=== PATIENT | male | born 1960 | race Caucasian/White ===

== ENCOUNTER 2018-08-10 15:44 | Outpatient (CLI) | payer BC ==
[2018-08-10 17:19] LABS: ALT (SGPT) 26 U/L (8-55); AST (SGOT) 26 U/L (5-34); Albumin 4.5 g/dL (3.5-5.0); Alkaline Phosphatase 64 U/L (40-150); Anion Gap 13 mmol/L (10-20); BUN (Urea Nitrogen) 7 mg/dL (8.4-25.7); Bilirubin, Total 0.3 mg/dL (0.2-1.2); Calc. Creatinine Clearance 0 mL/min (70-130); Calcium 9.8 mg/dL (7.8-10.44); Carbon Dioxide 24 mmol/L (22-29); Chloride 102 mmol/L (98-107); Estimated GFR-MDRD 69; Globulin 3.5 g/dL (2.4-3.5); Glucose 97 mg/dL (70-105); Potassium 3.7 mmol/L (3.5-5.1); Sodium 135 mmol/L (136-145)
[2018-08-10 17:24] LABS: #Basophils 0.1 thou/uL (0.0-0.2); #Eosinphils 0.1 thou/uL (0.0-0.7); #Lymphocytes 1.5 thou/uL (1.20-3.40); #Monocytes 0.7 thou/uL (0.11-0.59); #Neutrophils 4.6 thou/uL (1.40-6.50); %Basophils 0.9 % (0.0-1.0); %Eosinophils 1.5 % (0.0-10.0); %Lymphocytes 21.5 % (21.0-51.0); %Monocytes 10.4 % (0.0-10.0); %Neutrophils 65.7 % (42.0-75.0); Anisocytosis MODERATE=16-30 cells (100X) (0-5/hpf); Hemoglobin 13.7 g/dL (14.0-18.0); Hypochromia SLIGHT = 6-15 cells (100X) (0-5/hpf); MDiff Complete? YES; Mean Corpuscular Hemoglobin 25.9 pg (27.0-31.0); Mean Corpuscular Volume 80.9 fL (78.0-98.0); Mean Platelet Volume 10.6 fL (7.4-10.4); PLT Morphology Comment Appears Adequate; Platelet Count 372 thou/uL (130-400); RBC Distribution Width 28.1 % (11.5-14.5); Red Blood Cell (RBC) Count 5.29 mill/uL (4.70-6.10); Target Cells SLIGHT = 2-5 cells (100X) (0-1/hpf)
== END 2018-08-10 15:45 | disposition home or self-care (01) ==
LOC: LABBT 15:44
PROVIDERS: ATTEND Surgery
DX: Z01.818 Encounter for other preprocedural examination (principal); K64.2 Third degree hemorrhoids
CPT/HCPCS: 80053; 85025; 93005; 93010

== ENCOUNTER 2018-08-13 08:03 | Day surgery (SDC) | payer BC ==
[2018-08-10 16:02] VITALS: BMI 30.5
[2018-08-13] MEDS ORDERED: cefOXitin Sodium/Dextrose,Iso 2 GM in Premix Bag 1 BAG IVPB SCH (09:00)
[2018-08-13] MEDS ORDERED: Fentanyl 100 MCG/2 ML VIAL ONE ×3 (10:53→12:26)
[2018-08-13] MEDS ORDERED: Bacitracin Zinc Ointment 30 gm TUBE ONE (10:56)
[2018-08-13] MEDS ORDERED: Bupivacaine/Epinephrine 0.25% 30 ML VIAL ONE (10:56)
--- NOTE | 2018-08-13 12:28 | OP ---
DATE OF PROCEDURE: 08/13/2018 PREOPERATIVE DIAGNOSIS: Bleeding hemorrhoids. PROCEDURE PERFORMED: PPH stapled hemorrhoidectomy. INDICATIONS: A 58-year-old male, who has had multiple episodes of rectal bleeding. Colonoscopy did show hemorrhoids. He has had to have a blood transfusion. FINDINGS: Grade 3 internal hemorrhoids. DESCRIPTION OF PROCEDURE: After informed consent was obtained, the patient was taken to the operating room and given general endotracheal anesthesia. He was placed in the prone jann-knife position. Perianal region was prepped and draped in usual fashion. Local anesthesia was infiltrated subcutaneously and deep with 0.5% Marcaine as a four-quadrant anal block. Then, the anal retractor was inserted maximally and sutured in place with 0 silk suture circumferentially. Then, the pursestring guide was inserted and a pursestring of 2-0 Prolene placed circumferentially in the rectal mucosa. The stapler was then inserted. The anvil beyond the pursestring and the sutures were brought through the channels on the scope with a iban hook. This was tied as a knot and the pursestring held closed as the stapler closed. It was then fired and held for 30 seconds, released for 30 seconds, and removed. The specimen was inspected. There was no muscle fiber, sent to pathology for further analysis. Hemostasis was assured. There were two areas of bleeding that was controlled with interrupted [id number] of 3-0 chromic. Hemostasis was assured. Gelfoam impregnated with bacitracin was inserted within the anal canal. Sterile bandage applied. The patient tolerated the procedure well, transferred to recovery in good condition. Sponge and needle count verified correct x2. Job ID: [id number]
== END 2018-08-13 14:30 | disposition home or self-care (01) ==
LOC: SDC 08:03
PROVIDERS: ATTEND Surgery
PROC: 06LY0ZC Occlusion of Hemorrhoidal Plexus, Open Approach (ICD-10-PCS; principal; 2018-08-13)
DX: K64.2 Third degree hemorrhoids (principal); I10 Essential (primary) hypertension; E78.5 Hyperlipidemia, unspecified; G47.33 Obstructive sleep apnea (adult) (pediatric); Z90.49 Acquired absence of other specified parts of digestive tract; Z79.899 Other long term (current) drug therapy; Z98.890 Other specified postprocedural states
CPT/HCPCS: 88304; 96374; J3010

== ENCOUNTER 2020-09-12 18:24 | Inpatient (IN) | payer BC ==
[~2020-09-12 18:24] MED LIST: Iopamidol-370 76% 500 ML 1 ML ONE
[2020-09-12] MEDS ORDERED: cefTRIAXone\\ROCEPHIN 1 GM VIAL ONE (19:03)
[2020-09-12 19:16] LABS: #Eosinphils 0.1 thou/uL (0.0-0.7); #Lymphocytes 0.6 thou/uL (1.20-3.40); #Monocytes 0.9 thou/uL (0.11-0.59); #Neutrophils 5.9 thou/uL (1.40-6.50); %Basophils 0.4 % (0.0-1.0); %Eosinophils 0.8 % (0.0-10.0); %Lymphocytes 7.6 % (21.0-51.0); %Monocytes 11.6 % (0.0-10.0); %Neutrophils 79.5 % (42.0-75.0); Mean Corpuscular HGB CONC 34.5 g/dL (32.0-36.0); Mean Corpuscular Hemoglobin 32.6 pg (27.0-31.0); Mean Corpuscular Volume 94.4 fL (78.0-98.0); Platelet Count 401 thou/uL (130-400); RBC Distribution Width 11.6 % (11.5-14.5); Red Blood Cell (RBC) Count 5.23 mill/uL (4.70-6.10); White Blood Cell (WBC) Count 7.4 thou/uL (4.8-10.8)
--- NOTE | 2020-09-12 19:19 | RAD ---
PORTABLE CHEST ONE VIEW: 09/12/20 at 6:57 p.m. HISTORY: Cough. COMPARISON: 12/28/16 FINDINGS: The heart size is normal. The lungs are expanded with patchy opacities in the right mid lung. No pneu mothoraces or pleural effusions are seen. There are postop changes and metallic hardware in the lower cervical spine. IMPRESSION: Findings suspicious for right sided pneumonia. POS: OFF
[2020-09-12 19:25] LABS: PTT 30.6 sec (22.9-36.1); Prothrombin Time 13.3 sec (12.0-14.7)
[2020-09-12 19:27] LABS: D-Dimer Test 1.19 *mcg/mL (0.27-0.43)
[2020-09-12 19:38] LABS: ALT (SGPT) 12 U/L (8-55); AST (SGOT) 28 U/L (5-34); Acetaminophen Less than 6.0 mcg/mL (10.0-30.0); Albumin 3.7 g/dL (3.4-4.8); Alcohol Less than 10 mg/dL (Less than 10); Alkaline Phosphatase 78 U/L (40-110); Anion Gap 19 mmol/L (10-20); BUN (Urea Nitrogen) 6 mg/dL (8.4-25.7); Bilirubin, Total 0.4 mg/dL (0.2-1.2); Calc. Creatinine Clearance 0 mL/min (70-130); Calcium 9.1 mg/dL (7.8-10.44); Carbon Dioxide 25 mmol/L (23-31); Chloride 93 mmol/L (98-107); Glucose 105 mg/dL (80-115); Potassium 3.5 mmol/L (3.5-5.1); Protein, Total 7.7 g/dL (5.8-8.1); Salicylate Less than 8.0 mg/dL (15.0-30.0); Sodium 133 mmol/L (136-145)
[2020-09-12] MEDS ORDERED: Azithromycin 500 MG VIAL ONE (20:20)
[2020-09-12] MEDS ORDERED: Dexamethasone 10 MG/ML VIAL ONE (20:20)
--- NOTE | 2020-09-12 20:22 | CT ---
CT PULMONARY ANGIOGRAM WITH IV CONTRAST AND 3D POSTPROCESSIN09/12/20 HISTORY: Tachycardia, dyspnea, cough, fever, shortness of breath. FINDINGS: The peripheral ranches of the pulmonary arteries are not satisfactorily evaluated due to inadequate o pacification. No filling defects are seen in the main and right and left pulmonary arteries. The main pulmonary arterial trunk measures 3.5 cm. Possibility of pulmonary arterial hypertension should be c onsidered. The thoracic aorta is well opacified without aneurysmal dissection. No pleural or pericardial effusio ns are seen. No pneumothoraces identified. There are multifocal patchy areas of ground glass opacitie s in the lung mcdermott bilaterally. There are degenerative changes in the spine. Upper abdominal tomogr ams are unremarkable. IMPRESSION: No evidence of central pulmonary embolism. The findings are suspicious for viral pneumonia suggesting COVID-19 in the appropriate clinical setting. POS: OFF
[2020-09-12] MEDS ORDERED: Ketorolac Tromethamine 30 MG/ML VIAL ONE (21:28)
--- NOTE | 2020-09-12 22:07 | PDOC.HHP ---
Hospitalist HPI - History of Present Illness Shortness of breath History of Present Illness: This is a 60-year-old male patient with a history of hypertension, hyperlipidemia who presents with an 8-day history of worsening shortness of breath, cough fever and general malaise. He tested positive for Covid 3 to 4 days ago. He was in his usual state of health however notes that his tested positive for Covid but she has been asymptomatic. He subsequently started feeling generally unwell and had a test done at [facility] which was positive. Symptoms have become progressively worseleading him to come to the ED for further evaluation. He admits to fever with productive cough with generalized body pains. He denies any specific chest pain. On presentation he was noted to be wheezing with oxygen saturation at 88%. Blood pressure 166/105, pulse 118, temperature 100.2 respiratory rate is 29. Oxygen saturation improved to 94 on 2 L oxygen. CBC was generally unremarkable, BMP showed mild hyponatremia of 133, D-dimer was 1.19 however a follow-up CT scan revealed no pulmonary embolism. He however had findings suspicious of pneumonia. He was started on dexamethasone, azithromycin, ceftriaxone and 1 L normal saline. Hospitalist team consulted for admission Hospitalist ROS - Review of Systems Constitutional: reports: fever, chills, malaise. denies: sweats, weakness Respiratory: reports: cough, shortness of breath, SOB with excertion Cardiovascular: denies: chest pain, palpitations, orthopnea, paroxysmal noc. dyspnea Gastrointestinal: reports: diarrhea. denies: nausea, vomiting, abdominal pain Genitourinary: denies: dysuria, frequency Neurological: denies: weakness, numbness, incoordination, change in speech All other systems reviewed; all pertinent +/- noted in HPI/Subj - Medication Medications: Medications: Currently refer to ambulatory list. Allergies: No known drug allergies Hospitalist History - Past Medical History Cardiac: reports: HTN, Hyperlipidemia - Past Surgical History Past Surgical History: reports: Appendectomy, Hernia Repair - Family History Family History: reports: no pertinent history - Social History Smoking Status: Current every day smoker Alcohol: reports: Occassional Living Situation: With Family - Exam General Appearance: awake alert General - other findings: In mild respiratory distress Eye: PERRL, anicteric sclera Heart: RRR, no murmur, no gallops, no rubs Respiratory: no rales, no ronchi, wheezes Respiratory - other findings: Decreased air movement bilaterally. Gastrointestinal: soft, non-tender, non-distended, normal bowel sounds Extremities: no cyanosis, no clubbing, no edema Neurological: cranial nerve grossly intact, no weakness, no focal deficits Psychiatric: normal affect, normal behavior, A&O x 3 Hospitalist Results - Labs Result Diagrams: 09/12/20 18:58 09/12/20 18:58 Lab results: WBC 7.4 thou/uL (4.8-10.8) 09/12/20 18:58 Hgb 17.0 g/dL (14.0-18.0) 09/12/20 18:58 Hct 49.4 % (42.0-52.0) 09/12/20 18:58 MCV 94.4 fL (78.0-98.0) 09/12/20 18:58 Plt Count 401 thou/uL (130-400) H 09/12/20 18:58 Neutrophils % 79.5 % (42.0-75.0) H 09/12/20 18:58 Sodium 133 mmol/L (136-145) L 09/12/20 18:58 Potassium 3.5 mmol/L (3.5-5.1) 09/12/20 18:58 Chloride 93 mmol/L (98-107) L 09/12/20 18:58 Carbon Dioxide 25 mmol/L (23-31) 09/12/20 18:58 BUN 6 mg/dL (8.4-25.7) L 09/12/20 18:58 Creatinine 0.75 mg/dL (0.7-1.3) 09/12/20 18:58 Glucose 105 mg/dL (80-115) 09/12/20 18:58 Lactic Acid 1.6 mmol/L (0.5-2.2) 09/12/20 18:58 Calcium 9.1 mg/dL (7.8-10.44) 09/12/20 18:58 Total Bilirubin 0.4 mg/dL (0.2-1.2) 09/12/20 18:58 AST 28 U/L (5-34) 09/12/20 18:58 ALT 12 U/L (8-55) 01/16/21 18:58 Alkaline Phosphatase 78 U/L (40-110) 09/12/20 18:58 Troponin I Less than 0.010 ng/mL (< 0.028) 09/12/20 18:58 B-Natriuretic Peptide 61.4 pg/mL (0-100) 09/12/20 18:58 Serum Total Protein 7.7 g/dL (5.8-8.1) 09/12/20 18:58 Albumin 3.7 g/dL (3.4-4.8) 09/12/20 18:58 Hospitalist H&P A/P - Plan Plan: This is a 60-year-old male patient with a history of hypertension and hyperlipidemia who presents with 8 days of worsening fever cough and shortness of breath tested positive for Covid 3 to 4 days ago. Acute hypoxic respiratory failure Hypoxia with sats up to 88%. Likely secondary to Covid pneumonia Oxygen therapy as needed Pulmonology consult if necessary. Pneumonia due to Covid Positive test about 3 to 4 days ago. Steroids startedwe will continue Continue vitamins Consider remdesivirpharmacy to dose CRP and ferritin Hyponatremia Mild Monitor BMP Hypertension Resume home blood pressure medications next VT prophylaxisLovenox CODE STATUSfull code
[2020-09-13 00:22] VITALS: BMI 27.2
[2020-09-13 06:16] LABS: SARS-CoV-2 PCR by NAA DETECTED (NotDetected)
[2020-09-13] MEDS ORDERED: Calcium Carbonate 500 MG ChewTAB PO PRN (08:17)
[2020-09-13] MEDS ORDERED: Ondansetron PF 4 MG/2 ML Vial IVP PRN (08:17)
[2020-09-13] MEDS ORDERED: Senokot S 8.6-50 MG TAB PO PRN (08:17)
[2020-09-13] MEDS ORDERED: Ondansetron ODT 4 MG TAB PO PRN (08:17)
[2020-09-13] MEDS ORDERED: hydrALAZINE 20 MG/ML VIAL SLOW IVP PRN (08:24)
[2020-09-13] MEDS ORDERED: Potassium Chloride 20 MEQ TAB PO SCH (08:30)
[2020-09-13] MEDS ORDERED: Electrolyte Replacement Protocol 1 EACH FS SCH (08:30)
[2020-09-13] MEDS ORDERED: Albuterol 200 PUFF (6.7GM INHALER) INH PRN (08:58)
[2020-09-13] MEDS ORDERED: Dexamethasone 4 mg/ml Vial SLOW IVP SCH (09:00)
[2020-09-13] MEDS: Amlodipine 10 MG TAB PO SCH (09:03)
[2020-09-13] MEDS: Allopurinol 300 MG TAB PO SCH (09:03)
[2020-09-13] MEDS: Cholecalciferol (Vitamin D3) 400 UNITS TAB PO SCH (09:04)
[2020-09-13] MEDS: Ascorbic Acid 500 mg Chewable Tablet PO SCH (09:04)
[2020-09-13] MEDS: Zinc Sulfate 220 MG CAP PO SCH (09:06)
[2020-09-13] MEDS: Enoxaparin Sodium 40 MG/0.4 ML SYRINGE SC SCH ×2 (09:06→20:43)
[2020-09-13] MEDS: Primidone 50 MG TAB PO SCH (09:06)
[2020-09-13] MEDS: Doxycycline 100 MG CAP PO SCH ×2 (09:06→20:43)
[2020-09-13] MEDS: Albuterol 200 PUFF (6.7GM INHALER) INH SCH ×4 (10:39→22:57)
--- NOTE | 2020-09-13 18:58 | PDOC.HOSPP ---
- Subjective Encounter Date: 09/13/20 Encounter Time: 16:00 Subjective: Patient seen and examined for respiratory failure. Shortness of breath on [id number] exertion. Denies any chest pain or palpitations. No fever or chills reported. - Objective Vital Signs & Weight: Vital Signs (12 hours) Temp Pulse Resp BP BP Pulse Ox 09/13/20 16:01 97.8 F 90 16 144/91 H 95 09/13/20 10:40 97.9 F 70 26 H 155/84 H 97 09/13/20 09:03 78 09/13/20 08:17 98.4 F 71 26 H 151/83 H 97 Weight Weight 200 lb 14.4 oz I&O: 09/12/20 09/13/20 09/14/20 06:59 06:59 06:59 Intake Total 450 250 Output Total 800 500 Balance -350 -250 Result Diagrams: 09/12/20 18:58 09/12/20 18:58 Additional Labs: Abnormal Lab Results - Last 48 hrs 09/12/20 18:58: Sodium 133 L, Chloride 93 L, BUN 6 L, Globulin 4.0 H, Albumin/Globulin Ratio 0.9 L 09/12/20 18:58: MCH 32.6 H, Plt Count 401 H, MPV 6.0 L, Neutrophils % 79.5 H, Lymphocytes % 7.6 L, Monocytes % 11.6 H, Lymphocytes # 0.6 L, Monocytes # 0.9 H 09/12/20 18:58: D-Dimer 1.19 H 09/12/20 18:58: Salicylates Less than 8.0 L, Acetaminophen Less than 6.0 L 09/12/20 19:03: Ferritin 461.66 H 09/13/20 02:00: SARS-CoV-2 RNA (MAGDA) DETECTED A* 09/13/20 04:57: C-Reactive Protein 18.18 H Microbiology - Entire Visit 09/12/20 18:49 Venous blood - Right Arm Blood Culture - Preliminary Specimen has been received and culture in progress. No Growth to date. 09/12/20 18:58 Venous blood - Left Arm Blood Culture - Preliminary Specimen has been received and culture in progress. No Growth to date. Radiology Reviewed by me: Yes (CTA chestpneumonia, no PE) EKG Reviewed by me: Yes (Sinus rhythm on telemetry) Hospitalist ROS - Review of Systems Constitutional: reports: weakness, malaise Cardiovascular: denies: chest pain, palpitations, orthopnea, paroxysmal noc. dys pnea, edema, light headedness, other Gastrointestinal: denies: nausea, vomiting, abdominal pain, diarrhea, constipation, melena, hematochezia, other - Medication Medications: Active Medications Generic Name Dose Route Start Last Admin Trade Name Freq PRN Reason Stop Dose Admin Albuterol Sulfate 0 puff 09/13/20 10:30 09/13/20 15:00 Albuterol 200 Puff (6.7gm Inhaler) INH 2 inh [id number] ANNELISE Administration Allopurinol 300 mg 09/13/20 09:00 09/13/20 09:03 Allopurinol 300 Mg Tab PO 300 mg QAM ANNELISE Administration Amlodipine Besylate 10 mg 09/13/20 09:00 09/13/20 09:03 Amlodipine 10 Mg Tab PO 10 mg QAM ANNELISE Administration Ascorbic Acid 1,000 mg 09/13/20 09:00 09/13/20 09:04 Ascorbic Acid 500 Mg Chewable Tablet PO 1,000 mg DAILY ANNELISE Administration Cholecalciferol 400 units 09/13/20 09:00 09/13/20 09:04 Cholecalciferol (Vitamin D3) 400 Units Tab PO 400 units DAILY ANNELISE Administration Dexamethasone 8 mg 09/13/20 09:00 09/13/20 09:04 Dexamethasone 4 Mg/Ml Vial SLOW IVP 8 mg DAILY ANNELISE Administration Doxycycline Hyclate 100 mg 09/13/20 09:00 09/13/20 09:06 Doxycycline 100 Mg Cap PO 100 mg BID ANNELISE Administration Enoxaparin Sodium 40 mg 09/13/20 09:00 09/13/20 09:06 Enoxaparin Sodium 40 Mg/0.4 Ml Syringe SC 40 mg 0900,2100 ANNELISE Administration Metoprolol Succinate 50 mg 09/13/20 09:00 09/13/20 09:06 Metoprolol Succinate Xl 50 Mg Tab PO 50 mg DAILY ANNELISE Administration Pantoprazole Sodium 40 mg 09/13/20 09:00 09/13/20 09:07 Pantoprazole 40 Mg Tab PO 40 mg DAILY ANNELISE Administration Primidone 100 mg 09/13/20 09:00 09/13/20 09:06 Primidone 50 Mg Tab PO 100 mg DAILY ANNELISE Administration Zinc Sulfate 220 mg 09/13/20 09:00 09/13/20 09:06 Zinc Sulfate 220 Mg Cap PO 220 mg DAILY ANNELISE Administration - Exam General Appearance: ill appearing ENT: normocephalic atraumatic, no oropharyngeal lesions Neck: supple, symmetric, no JVD Heart: RRR, no gallops, no rubs, normal peripheral pulses Respiratory: no wheezes, rales, rhonchi, tachypneic Gastrointestinal: soft, non-distended, normal bowel sounds, no guarding, no rigidity Extremities: no cyanosis, no clubbing, no edema Extremities - other findings: No calf tenderness Neurological: no new deficit Musculoskeletal: generalized weakness Psychiatric: normal affect, A&O x 3 Hosp A/P - Plan DVT proph w/SCDs Severe sepsis/acute hypoxic respiratory failure due to COVID-19 pneumoniaPOA Hyponatremia Elevated inflammatory markers Hypertension Hyperlipidemia Reactive thrombocytosis Gout Plan: Reduce Decadron to 6 mg daily. Patient requiring 2 L O2 nasal cannula. Monitor inflammatory markers. Remdesivir if patient qualifies. Resume selected home medications including amlodipine. Start low-dose Toprol-XL. Hold olmesartan for now. Add bronchodilators. Add doxycycline. Check inflammatory markers in a.m. Continue other medications as above. Continue COVID-19 isolation.
[2020-09-13] MEDS: Acetaminophen 325 MG TAB PO PRN (20:43)
[2020-09-13] MEDS: Mometasone 200 MCG/Formoterol 5 MCG 120 PUFF INHALER INH SCH (20:44)
[2020-09-14] MEDS: Albuterol 200 PUFF (6.7GM INHALER) INH SCH ×6 (02:33→23:26)
[2020-09-14 05:48] LABS: #Lymphocytes 0.6 thou/uL (1.20-3.40); #Monocytes 0.9 thou/uL (0.11-0.59); #Neutrophils 8.1 thou/uL (1.40-6.50); %Eosinophils 0.1 % (0.0-10.0); %Monocytes 9.7 % (0.0-10.0); %Neutrophils 84.3 % (42.0-75.0); Hemoglobin 15.4 g/dL (14.0-18.0); Mean Corpuscular HGB CONC 32.1 g/dL (32.0-36.0); Mean Corpuscular Hemoglobin 30.2 pg (27.0-31.0); Mean Platelet Volume 6.1 fL (7.4-10.4); Platelet Count 509 thou/uL (130-400); RBC Distribution Width 11.7 % (11.5-14.5); Red Blood Cell (RBC) Count 5.09 mill/uL (4.70-6.10); White Blood Cell (WBC) Count 9.6 thou/uL (4.8-10.8)
[2020-09-14] MEDS: Mometasone 200 MCG/Formoterol 5 MCG 120 PUFF INHALER INH SCH ×2 (05:57→18:55)
[2020-09-14 06:07] LABS: Phosphorus 3.4 mg/dL (2.3-4.7)
[2020-09-14 06:09] LABS: ALT (SGPT) 13 U/L (8-55); AST (SGOT) 16 U/L (5-34); Albumin 3.3 g/dL (3.4-4.8); Alkaline Phosphatase 61 U/L (40-110); Anion Gap 12 mmol/L (10-20); BUN (Urea Nitrogen) 9 mg/dL (8.4-25.7); Bilirubin, Total 0.2 mg/dL (0.2-1.2); CRP (Inflammatory) 8.24 mg/dL (= or < 0.5); Calc. Creatinine Clearance 154 mL/min (70-130); Calcium 8.9 mg/dL (7.8-10.44); Carbon Dioxide 30 mmol/L (23-31); Chloride 100 mmol/L (98-107); Globulin 3.6 g/dL (2.4-3.5); Glucose 132 mg/dL (80-115); Magnesium 2.1 mg/dL (1.6-2.6); Potassium 3.4 mmol/L (3.5-5.1); Protein, Total 6.9 g/dL (5.8-8.1); Sodium 139 mmol/L (136-145)
[2020-09-14] MEDS ORDERED: Potassium Chloride 20 MEQ TAB PO SCH (07:30)
[2020-09-14] MEDS: Ascorbic Acid 500 mg Chewable Tablet PO SCH (08:19)
[2020-09-14] MEDS: Amlodipine 10 MG TAB PO SCH (08:20)
[2020-09-14] MEDS: Cholecalciferol (Vitamin D3) 400 UNITS TAB PO SCH (08:21)
[2020-09-14] MEDS: Allopurinol 300 MG TAB PO SCH (08:21)
[2020-09-14] MEDS: Doxycycline 100 MG CAP PO SCH ×2 (08:21→19:51)
[2020-09-14] MEDS ORDERED: Dexamethasone 4 mg/ml Vial ONE (08:25)
[2020-09-14] MEDS: Dexamethasone 4 mg/ml Vial SLOW IVP SCH (08:26)
[2020-09-14] MEDS: Enoxaparin Sodium 40 MG/0.4 ML SYRINGE SC SCH ×2 (08:29→19:51)
[2020-09-14] MEDS: Acetaminophen 325 MG TAB PO PRN (11:01)
[2020-09-14] MEDS: Primidone 50 MG TAB PO SCH (11:02)
[2020-09-14] MEDS: Zinc Sulfate 220 MG CAP PO SCH (11:03)
[2020-09-14] MEDS: Lorazepam 1 MG TAB PO PRN ×2 (14:01→19:51)
[2020-09-14] MEDS ORDERED: REMDESIVIR IV SCH (15:00)
[2020-09-14] MEDS ORDERED: SODIUM CHLORIDE 0.9% IV SCH (15:00)
--- NOTE | 2020-09-14 22:01 | PDOC.HOSPP ---
- Subjective Encounter Date: 09/14/20 Encounter Time: 16:00 Subjective: Patient seen and examined for COVID 19 pneumonia. Denies any new complaints. Symptomatically feeling better. No fever or chills - Objective Vital Signs & Weight: Vital Signs (12 hours) Temp Pulse Resp BP BP Pulse Ox 09/14/20 20:49 157/98 H 09/14/20 20:00 97.7 F 93 20 146/88 H 92 L 09/14/20 18:53 97.9 F 92 20 157/98 H 92 L 09/14/20 18:45 97.9 F 92 20 157/98 H 92 L 09/14/20 17:55 157/98 H 09/14/20 15:00 97.8 F 87 21 H 152/88 H 94 L 09/14/20 13:55 153/89 H 09/14/20 13:52 153/89 H 09/14/20 11:00 97.9 F 95 16 153/89 H 94 L Weight Weight 200 lb 14.4 oz I&O: 09/13/20 09/14/20 09/15/20 06:59 06:59 06:59 Intake Total 450 250 600 Output Total 800 500 Balance -350 -250 600 Result Diagrams: 09/14/20 05:25 09/14/20 05:25 Additional Labs: Abnormal Lab Results - Last 48 hrs 09/12/20 19:03: Ferritin 461.66 H 09/13/20 02:00: SARS-CoV-2 RNA (MAGDA) DETECTED A* 09/13/20 04:57: C-Reactive Protein 18.18 H 09/14/20 05:25: Potassium 3.4 L, Creatinine 0.65 L, C-Reactive Protein 8.24 H, Albumin 3.3 L, Globulin 3.6 H, Albumin/Globulin Ratio 0.9 L 09/14/20 05:25: Ferritin 526.22 H 09/14/20 05:25: Plt Count 509 H, MPV 6.1 L, Neutrophils % 84.3 H, Lymphocytes % 6.0 L, Neutrophils # 8.1 H, Lymphocytes # 0.6 L, Monocytes # 0.9 H 09/14/20 05:25: D-Dimer 0.87 H Microbiology - Entire Visit 09/12/20 18:49 Venous blood - Right Arm Blood Culture - Preliminary NO GROWTH AT 48 HOURS 09/12/20 18:58 Venous blood - Left Arm Blood Culture - Preliminary NO GROWTH AT 48 HOURS Radiology Reviewed by me: Yes (CTACOVID pneumonia) Hospitalist ROS - Review of Systems Constitutional: reports: weakness Cardiovascular: denies: chest pain, palpitations, orthopnea, paroxysmal noc. dyspnea, edema, light headedness, other Gastrointestinal: denies: nausea, vomiting, abdominal pain, diarrhea, constipation, melena, hematochezia, other - Medication Medications: Active Medications Generic Name Dose Route Start Last Admin Trade Name Freq PRN Reason Stop Dose Admin Acetaminophen 650 mg 09/13/20 08:17 09/14/20 11:01 Acetaminophen 325 Mg Tab PO 650 mg Q4H PRN Administration Headache/Fever/Mild Pain (1-3) Albuterol Sulfate 0 puff 09/13/20 10:30 09/14/20 18:55 Albuterol 200 Puff (6.7gm Inhaler) INH 2 inh [id number] ANNELISE Administration Allopurinol 300 mg 09/13/20 09:00 09/14/20 08:21 Allopurinol 300 Mg Tab PO 300 mg QAM ANNELISE Administration Amlodipine Besylate 10 mg 09/13/20 09:00 09/14/20 08:20 Amlodipine 10 Mg Tab PO 10 mg QAM ANNELISE Administration Ascorbic Acid 1,000 mg 09/13/20 09:00 09/14/20 08:19 Ascorbic Acid 500 Mg Chewable Tablet PO 1,000 mg DAILY ANNELISE Administration Cholecalciferol 400 units 09/13/20 09:00 09/14/20 08:21 Cholecalciferol (Vitamin D3) 400 Units Tab PO 400 units DAILY ANNELISE Administration Dexamethasone 6 mg 09/14/20 09:00 09/14/20 08:26 Dexamethasone 4 Mg/Ml Vial SLOW IVP 6 mg DAILY ANNELISE Administration Doxycycline Hyclate 100 mg 09/13/20 09:00 09/14/20 19:51 Doxycycline 100 Mg Cap PO 100 mg BID ANNELISE Administration Enoxaparin Sodium 40 mg 09/13/20 09:00 09/14/20 19:51 Enoxaparin Sodium 40 Mg/0.4 Ml Syringe SC 40 mg 0900,2100 ANNELISE Administration Hydralazine HCl 10 mg 09/13/20 08:24 09/14/20 00:45 Hydralazine 20 Mg/Ml Vial SLOW IVP 10 mg Q4H PRN Administration SBP GREATER THAN 160 Lorazepam 1 mg 09/14/20 11:28 09/14/20 19:51 Lorazepam 1 Mg Tab PO 1 mg Q4H PRN Administration ASE >=9 Metoprolol Succinate 50 mg 09/13/20 09:00 09/14/20 08:20 Metoprolol Succinate Xl 50 Mg Tab PO 50 mg DAILY ANNELISE Administration Mometasone Furoate/Formoterol Fumar 2 puff 09/13/20 18:30 09/14/20 18:55 Mometasone 200 Mcg/Formoterol 5 Mcg 120 Puff Inhaler INH 2 puff BID-RT ANNELISE Administration Pantoprazole Sodium 40 mg 09/13/20 09:00 09/13/20 09:07 Pantoprazole 40 Mg Tab PO 40 mg DAILY ANNELISE Administration Primidone 100 mg 09/13/20 09:00 09/14/20 11:02 Primidone 50 Mg Tab PO 100 mg DAILY ANNELISE Administration Zinc Sulfate 220 mg 09/13/20 09:00 09/14/20 11:03 Zinc Sulfate 220 Mg Cap PO Not Given DAILY ANNELISE - Exam General Appearance: awake alert Neck: supple, no JVD Heart: RRR, no gallops Respiratory: no wheezes, rales, rhonchi Gastrointestinal: soft, non-tender, no rigidity Extremities: no cyanosis Musculoskeletal: generalized weakness Psychiatric: normal affect, A&O x 3 Hosp A/P - Plan DVT proph w/SCDs Severe sepsis/acute hypoxic respiratory failure due to COVID-19 pneumonia Hyponatremia/Hypokalemia Elevated inflammatory markers Hypertension Hyperlipidemia Reactive thrombocytosis Gout Chronic alcohol use Plan: Patient currently on 4 L oxygen nasal cannula. Inflammatory markers improving. Will replace potassium. Blood cultures negative. At alcohol withdrawal protocol. Remdesivir started. Continue bronchodilators. Continue current dose of amlodipine, doxycycline, Decadron along with Toprol-XL. Monitor LFTs on daily basis. Continue other medications as above 09/13 Reduce Decadron to 6 mg daily. Patient requiring 2 L O2 nasal cannula. Monitor inflammatory markers. Remdesivir if patient qualifies. Resume selected home medications including amlodipine. Start low-dose Toprol-XL. Hold olmesartan for now. Add bronchodilators. Add doxycycline. Check inflammatory markers in a.m. Continue other medications as above. Continue COVID-19 isolation.
[2020-09-14] MEDS: ALPRAZolam 0.25 MG TAB PO PRN (23:53)
[2020-09-15] MEDS: Albuterol 200 PUFF (6.7GM INHALER) INH SCH ×6 (03:38→23:05)
[2020-09-15 06:10] LABS: #Lymphocytes 0.7 thou/uL (1.20-3.40); #Monocytes 1.2 thou/uL (0.11-0.59); #Neutrophils 7.3 thou/uL (1.40-6.50); %Basophils 0.1 % (0.0-1.0); %Eosinophils 0.2 % (0.0-10.0); %Lymphocytes 7.9 % (21.0-51.0); %Monocytes 12.7 % (0.0-10.0); %Neutrophils 79.1 % (42.0-75.0); Hemoglobin 14.8 g/dL (14.0-18.0); Mean Corpuscular HGB CONC 33.3 g/dL (32.0-36.0); Mean Corpuscular Hemoglobin 31.8 pg (27.0-31.0); Mean Corpuscular Volume 95.5 fL (78.0-98.0); Mean Platelet Volume 5.8 fL (7.4-10.4); Platelet Count 511 thou/uL (130-400); RBC Distribution Width 11.7 % (11.5-14.5); Red Blood Cell (RBC) Count 4.64 mill/uL (4.70-6.10); White Blood Cell (WBC) Count 9.2 thou/uL (4.8-10.8)
[2020-09-15] MEDS: Mometasone 200 MCG/Formoterol 5 MCG 120 PUFF INHALER INH SCH ×2 (06:10→17:33)
[2020-09-15 06:31] LABS: ALT (SGPT) 14 U/L (8-55); AST (SGOT) 14 U/L (5-34); Alkaline Phosphatase 56 U/L (40-110); Anion Gap 16 mmol/L (10-20); BUN (Urea Nitrogen) 10 mg/dL (8.4-25.7); Bilirubin, Total 0.2 mg/dL (0.2-1.2); Calc. Creatinine Clearance 151 mL/min (70-130); Calcium 8.6 mg/dL (7.8-10.44); Carbon Dioxide 28 mmol/L (23-31); Chloride 100 mmol/L (98-107); Globulin 3.2 g/dL (2.4-3.5); Glucose 101 mg/dL (80-115); Potassium 3.5 mmol/L (3.5-5.1); Protein, Total 6.2 g/dL (5.8-8.1); Sodium 140 mmol/L (136-145)
[2020-09-15] MEDS ORDERED: Potassium Chloride 20 MEQ TAB PO SCH (07:45)
[2020-09-15] MEDS: Cholecalciferol (Vitamin D3) 400 UNITS TAB PO SCH (08:36)
[2020-09-15] MEDS: Amlodipine 10 MG TAB PO SCH (08:36)
[2020-09-15] MEDS: Doxycycline 100 MG CAP PO SCH ×2 (08:36→20:39)
[2020-09-15] MEDS: Zinc Sulfate 220 MG CAP PO SCH (08:36)
[2020-09-15] MEDS: Ascorbic Acid 500 mg Chewable Tablet PO SCH (08:37)
[2020-09-15] MEDS: Dexamethasone 4 mg/ml Vial SLOW IVP SCH (08:37)
[2020-09-15] MEDS: Primidone 50 MG TAB PO SCH (08:37)
[2020-09-15] MEDS: Allopurinol 300 MG TAB PO SCH (08:37)
[2020-09-15] MEDS: Enoxaparin Sodium 40 MG/0.4 ML SYRINGE SC SCH ×2 (08:37→20:39)
[2020-09-15] MEDS: ALPRAZolam 0.25 MG TAB PO PRN (11:38)
[2020-09-15] MEDS: SODIUM CHLORIDE 0.9% IV SCH (15:48)
[2020-09-15] MEDS: REMDESIVIR IV SCH (15:48)
--- NOTE | 2020-09-15 19:41 | PDOC.HOSPP ---
- Subjective Encounter Date: 09/15/20 Encounter Time: 14:00 Subjective: Patient seen and examined for respiratory failure. Shortness of breath improving. Denies any other complaints. Withdrawal symptoms controlled with ASE protocol. - Objective Vital Signs & Weight: Vital Signs (12 hours) Temp Pulse Resp BP BP Pulse Ox 09/15/20 19:28 98.8 F 88 20 147/87 H 93 L 09/15/20 16:55 98.6 F 93 18 143/85 H 95 09/15/20 12:45 98.6 F 90 20 133/81 100 09/15/20 08:40 97 09/15/20 08:35 98 20 97 09/15/20 08:17 98.8 F 90 24 H 145/83 H 96 Weight Weight 200 lb 14.4 oz I&O: 09/14/20 09/15/20 09/16/20 06:59 06:59 06:59 Intake Total 824 370 4366 Output Total 500 Balance -528 218 0051 Result Diagrams: 09/15/20 05:58 09/15/20 05:58 Additional Labs: Abnormal Lab Results - Last 48 hrs 09/14/20 05:25: Potassium 3.4 L, Creatinine 0.65 L, C-Reactive Protein 8.24 H, Albumin 3.3 L, Globulin 3.6 H, Albumin/Globulin Ratio 0.9 L 09/14/20 05:25: Ferritin 526.22 H 09/14/20 05:25: Plt Count 509 H, MPV 6.1 L, Neutrophils % 84.3 H, Lymphocytes % 6.0 L, Neutrophils # 8.1 H, Lymphocytes # 0.6 L, Monocytes # 0.9 H 09/14/20 05:25: D-Dimer 0.87 H 09/15/20 05:58: Creatinine 0.66 L, Albumin 3.0 L, Albumin/Globulin Ratio 0.9 L 09/15/20 05:58: RBC 4.64 L, MCH 31.8 H, Plt Count 511 H, MPV 5.8 L, Neutrophils % 79.1 H, Lymphocytes % 7.9 L, Monocytes % 12.7 H, Neutrophils # 7.3 H, Lymphocytes # 0.7 L, Monocytes # 1.2 H Microbiology - Entire Visit 09/12/20 18:49 Venous blood - Right Arm Blood Culture - Preliminary NO GROWTH AT 48 HOURS 09/12/20 18:58 Venous blood - Left Arm Blood Culture - Preliminary NO GROWTH AT 48 HOURS Hospitalist ROS - Review of Systems Cardiovascular: denies: chest pain, palpitations, orthopnea, paroxysmal noc. dyspnea, edema, light headedness, other Gastrointestinal: denies: nausea, vomiting, abdominal pain, diarrhea, constipation, melena, hematochezia, other - Medication Medications: Active Medications Generic Name Dose Route Start Last Admin Trade Name Freq PRN Reason Stop Dose Admin Acetaminophen 650 mg 09/13/20 08:17 09/14/20 11:01 Acetaminophen 325 Mg Tab PO 650 mg Q4H PRN Administration Headache/Fever/Mild Pain (1-3) Albuterol Sulfate 0 puff 09/13/20 10:30 09/15/20 17:34 Albuterol 200 Puff (6.7gm Inhaler) INH 2 inh [id number] ANNELISE Administration Allopurinol 300 mg 09/13/20 09:00 09/15/20 08:37 Allopurinol 300 Mg Tab PO 300 mg QAM ANNELISE Administration Alprazolam 0.25 mg 09/14/20 22:03 09/15/20 11:38 Alprazolam 0.25 Mg Tab PO 0.25 mg BIDPRN PRN Administration Anxiety Amlodipine Besylate 10 mg 09/13/20 09:00 09/15/20 08:36 Amlodipine 10 Mg Tab PO 10 mg QAM ANNELISE Administration Ascorbic Acid 1,000 mg 09/13/20 09:00 09/15/20 08:37 Ascorbic Acid 500 Mg Chewable Tablet PO 1,000 mg DAILY ANNELISE Administration Cholecalciferol 400 units 09/13/20 09:00 09/15/20 08:36 Cholecalciferol (Vitamin D3) 400 Units Tab PO 400 units DAILY ANNELISE Administration Dexamethasone 6 mg 09/14/20 09:00 09/15/20 08:37 Dexamethasone 4 Mg/Ml Vial SLOW IVP 6 mg DAILY ANNELISE Administration Doxycycline Hyclate 100 mg 09/13/20 09:00 09/15/20 08:36 Doxycycline 100 Mg Cap PO 100 mg BID ANNELISE Administration Enoxaparin Sodium 40 mg 09/13/20 09:00 09/15/20 08:37 Enoxaparin Sodium 40 Mg/0.4 Ml Syringe SC 40 mg 0900,2099 ANNELISE Administration Hydralazine HCl 10 mg 09/13/20 08:24 09/14/20 00:45 Hydralazine 20 Mg/Ml Vial SLOW IVP 10 mg Q4H PRN Administration SBP GREATER THAN 160 Remdesivir 100 mg/ Sodium 80 mls @ 80 mls/hr 09/15/20 15:00 09/15/20 15:48 Chloride IV 09/18/20 15:59 80 mls 1500 ANNELISE Administration Lorazepam 1 mg 09/14/20 11:28 09/14/20 19:51 Lorazepam 1 Mg Tab PO 1 mg Q4H PRN Administration ASE >=9 Metoprolol Succinate 50 mg 09/13/20 09:00 09/15/20 08:37 Metoprolol Succinate Xl 50 Mg Tab PO 50 mg DAILY ANNELISE Administration Mometasone Furoate/Formoterol Fumar 2 puff 09/13/20 18:30 09/15/20 17:33 Mometasone 200 Mcg/Formoterol 5 Mcg 120 Puff Inhaler INH 2 puff BID-RT ANNELISE Administration Pantoprazole Sodium 40 mg 09/13/20 09:00 09/15/20 08:37 Pantoprazole 40 Mg Tab PO 40 mg DAILY ANNELISE Administration Primidone 100 mg 09/13/20 09:00 09/15/20 08:37 Primidone 50 Mg Tab PO 100 mg DAILY ANNELISE Administration Sodium Chloride 10 ml 09/13/20 08:17 09/15/20 08:37 Flush - Normal Saline 10 Ml Syringe IVF 10 ml PRN PRN Administration Saline Flush Zinc Sulfate 220 mg 09/13/20 09:00 09/15/20 08:36 Zinc Sulfate 220 Mg Cap PO 220 mg DAILY ANNELISE Administration - Exam General Appearance: awake alert Neck: supple, no JVD Heart: RRR, no gallops, no rubs Respiratory: no wheezes, rales, rhonchi Gastrointestinal: soft, normal bowel sounds, no guarding, no rigidity Extremities: no cyanosis Neurological: no new deficit Musculoskeletal: generalized weakness Psychiatric: normal affect, A&O x 3 Hosp A/P - Plan DVT proph w/SCDs Severe sepsis/acute hypoxic respiratory failure due to COVID-19 pneumonia Hyponatremia/Hypokalemia Elevated inflammatory markers Hypertension Hyperlipidemia Reactive thrombocytosis Gout Chronic alcohol abuse with alcohol withdrawalpatient drinks 12 to 16 pack beer on the daily basis Plan: Wean O2 as tolerated. Patient down to 3 L O2 nasal cannula. Symptomatically feeling better.. Continue remdesivir with dexamethasone and doxycycline. Continue bronchodilators. Continue PPIs. Replace potassium. Continue alcohol withdrawal protocol. Continue other medications as above. Close monitoring for alcohol withdrawal. 09/14 Patient currently on 4 L oxygen nasal cannula. Inflammatory markers improving. Will replace potassium. Blood cultures negative. At alcohol withdrawal protocol. Remdesivir started. Continue bronchodilators. Continue current dose of amlodipine, doxycycline, Decadron along with Toprol-XL. Monitor LFTs on daily basis. Continue other medications as above 09/13 Reduce Decadron to 6 mg daily. Patient requiring 2 L O2 nasal cannula. Monitor inflammatory markers. Remdesivir if patient qualifies. Resume selected home medications including amlodipine. Start low-dose Toprol-XL. Hold olmesartan for now. Add bronchodilators. Add doxycycline. Check inflammatory markers in a.m. Continue other medications as above. Continue COVID-19 isolation.
[2020-09-15] MEDS: BEER 1 CAN PO SCH (20:40)
[2020-09-16] MEDS: Albuterol 200 PUFF (6.7GM INHALER) INH SCH ×6 (03:06→22:50)
[2020-09-16 06:18] LABS: #Eosinphils 0.1 thou/uL (0.0-0.7); #Monocytes 1.4 thou/uL (0.11-0.59); #Neutrophils 8.1 thou/uL (1.40-6.50); %Basophils 0.1 % (0.0-1.0); %Eosinophils 0.5 % (0.0-10.0); %Lymphocytes 9.3 % (21.0-51.0); %Monocytes 13.1 % (0.0-10.0); Hemoglobin 14.4 g/dL (14.0-18.0); Mean Corpuscular HGB CONC 32.2 g/dL (32.0-36.0); Mean Corpuscular Hemoglobin 30.6 pg (27.0-31.0); Platelet Count 559 thou/uL (130-400); RBC Distribution Width 11.7 % (11.5-14.5); Red Blood Cell (RBC) Count 4.69 mill/uL (4.70-6.10); White Blood Cell (WBC) Count 10.6 thou/uL (4.8-10.8)
[2020-09-16 06:45] LABS: ALT (SGPT) 23 U/L (8-55); AST (SGOT) 20 U/L (5-34); Albumin 3.1 g/dL (3.4-4.8); Alkaline Phosphatase 64 U/L (40-110); Anion Gap 12 mmol/L (10-20); BUN (Urea Nitrogen) 9 mg/dL (8.4-25.7); Bilirubin, Total 0.2 mg/dL (0.2-1.2); Calc. Creatinine Clearance 137 mL/min (70-130); Calcium 8.7 mg/dL (7.8-10.44); Carbon Dioxide 34 mmol/L (23-31); Chloride 98 mmol/L (98-107); Globulin 3.3 g/dL (2.4-3.5); Glucose 98 mg/dL (80-115); Potassium 3.9 mmol/L (3.5-5.1); Protein, Total 6.4 g/dL (5.8-8.1); Sodium 140 mmol/L (136-145)
[2020-09-16] MEDS: Mometasone 200 MCG/Formoterol 5 MCG 120 PUFF INHALER INH SCH ×2 (07:28→17:18)
[2020-09-16] MEDS: Ascorbic Acid 500 mg Chewable Tablet PO SCH (08:06)
[2020-09-16] MEDS: Enoxaparin Sodium 40 MG/0.4 ML SYRINGE SC SCH (08:06)
[2020-09-16] MEDS: Allopurinol 300 MG TAB PO SCH (08:07)
[2020-09-16] MEDS: Doxycycline 100 MG CAP PO SCH ×2 (08:07→20:59)
[2020-09-16] MEDS: Dexamethasone 4 mg/ml Vial SLOW IVP SCH (08:07)
[2020-09-16] MEDS: Amlodipine 10 MG TAB PO SCH (08:07)
[2020-09-16] MEDS: Zinc Sulfate 220 MG CAP PO SCH (08:07)
[2020-09-16] MEDS: Cholecalciferol (Vitamin D3) 400 UNITS TAB PO SCH (08:07)
[2020-09-16] MEDS: Primidone 50 MG TAB PO SCH (09:30)
[2020-09-16] MEDS: ALPRAZolam 0.25 MG TAB PO PRN (12:14)
[2020-09-16] MEDS: REMDESIVIR IV SCH (16:20)
[2020-09-16] MEDS: SODIUM CHLORIDE 0.9% IV SCH (16:20)
--- NOTE | 2020-09-16 18:31 | PDOC.HOSPP ---
- Subjective Encounter Date: 09/16/20 Encounter Time: 11:00 Subjective: Patient seen and examined for respiratory failure. Shortness of breath improving. Denies any new complaints. - Objective Vital Signs & Weight: Vital Signs (12 hours) Temp Pulse Resp BP BP Pulse Ox 09/16/20 16:58 99.0 F 83 20 130/83 97 09/16/20 13:00 145/88 H 09/16/20 12:02 98.5 F 105 H 20 145/88 H 95 09/16/20 09:00 159/73 H 09/16/20 08:30 98.9 F 86 20 159/93 H 93 L 09/16/20 08:07 132/85 09/16/20 08:00 93 L Weight Weight 200 lb 14.4 oz I&O: 09/15/20 09/16/20 09/17/20 06:59 06:59 06:59 Intake Total 600 1800 Balance 600 1800 Result Diagrams: 09/16/20 05:52 09/16/20 05:52 Additional Labs: Abnormal Lab Results - Last 48 hrs 09/15/20 05:58: Creatinine 0.66 L, Albumin 3.0 L, Albumin/Globulin Ratio 0.9 L 09/15/20 05:58: RBC 4.64 L, MCH 31.8 H, Plt Count 511 H, MPV 5.8 L, Neutrophils % 79.1 H, Lymphocytes % 7.9 L, Monocytes % 12.7 H, Neutrophils # 7.3 H, Lymphocytes # 0.7 L, Monocytes # 1.2 H 09/16/20 05:52: Carbon Dioxide 34 H, Albumin 3.1 L, Albumin/Globulin Ratio 0.9 L 09/16/20 05:52: RBC 4.69 L, Plt Count 559 H, MPV 6.0 L, Neutrophils % 77.0 H, Lymphocytes % 9.3 L, Monocytes % 13.1 H, Neutrophils # 8.1 H, Lymphocytes # 1.0 L, Monocytes # 1.4 H Microbiology - Entire Visit 09/12/20 18:49 Venous blood - Right Arm Blood Culture - Preliminary NO GROWTH AT 48 HOURS 09/12/20 18:58 Venous blood - Left Arm Blood Culture - Preliminary NO GROWTH AT 48 HOURS Hospitalist ROS - Review of Systems Cardiovascular: denies: chest pain, palpitations, orthopnea, paroxysmal noc. dyspnea, edema, light headedness, other Gastrointestinal: denies: nausea, vomiting, abdominal pain, diarrhea, constipation, melena, hematochezia, other - Medication Medications: Active Medications Generic Name Dose Route Start Last Admin Trade Name Freq PRN Reason Stop Dose Admin Acetaminophen 650 mg 09/13/20 08:17 09/14/20 11:01 Acetaminophen 325 Mg Tab PO 650 mg Q4H PRN Administration Headache/Fever/Mild Pain (1-3) Albuterol Sulfate 0 puff 09/13/20 10:30 09/16/20 17:18 Albuterol 200 Puff (6.7gm Inhaler) INH 2 inh [id number] ANNELISE Administration Allopurinol 300 mg 09/13/20 09:00 09/16/20 08:07 Allopurinol 300 Mg Tab PO 300 mg QAM ANNELISE Administration Alprazolam 0.25 mg 09/14/20 22:03 09/16/20 12:14 Alprazolam 0.25 Mg Tab PO 0.25 mg BIDPRN PRN Administration Anxiety Amlodipine Besylate 10 mg 09/13/20 09:00 09/16/20 08:07 Amlodipine 10 Mg Tab PO 10 mg QAM ANNELISE Administration Ascorbic Acid 1,000 mg 09/13/20 09:00 09/16/20 08:06 Ascorbic Acid 500 Mg Chewable Tablet PO 1,000 mg DAILY ANNELISE Administration Beer 1 each 09/15/20 21:00 09/15/20 20:40 Beer 1 Can PO 1 each HS ANNELISE Administration Cholecalciferol 400 units 09/13/20 09:00 09/16/20 08:07 Cholecalciferol (Vitamin D3) 400 Units Tab PO 400 units DAILY ANNELISE Administration Dexamethasone 6 mg 09/14/20 09:00 09/16/20 08:07 Dexamethasone 4 Mg/Ml Vial SLOW IVP 6 mg DAILY ANNELISE Administration Doxycycline Hyclate 100 mg 09/13/20 09:00 09/16/20 08:07 Doxycycline 100 Mg Cap PO 100 mg BID ANNELISE Administration Enoxaparin Sodium 40 mg 09/13/20 09:00 09/16/20 08:06 Enoxaparin Sodium 40 Mg/0.4 Ml Syringe SC 40 mg 0900,2100 ANNELISE Administration Hydralazine HCl 10 mg 09/13/20 08:24 09/14/20 00:45 Hydralazine 20 Mg/Ml Vial SLOW IVP 10 mg Q4H PRN Administration SBP GREATER THAN 160 Remdesivir 100 mg/ Sodium 80 mls @ 80 mls/hr 09/15/20 15:00 09/16/20 16:20 Chloride IV 09/18/20 15:59 80 mls 1500 ANNELISE Administration Lorazepam 1 mg 09/14/20 11:28 09/14/20 19:51 Lorazepam 1 Mg Tab PO 1 mg Q4H PRN Administration ASE >=9 Metoprolol Succinate 50 mg 09/13/20 09:00 09/16/20 08:07 Metoprolol Succinate Xl 50 Mg Tab PO 50 mg DAILY ANNELISE Administration Mometasone Furoate/Formoterol Fumar 2 puff 09/13/20 18:30 09/16/20 17:18 Mometasone 200 Mcg/Formoterol 5 Mcg 120 Puff Inhaler INH 2 puff BID-RT ANNELISE Administration Pantoprazole Sodium 40 mg 09/13/20 09:00 09/16/20 08:06 Pantoprazole 40 Mg Tab PO 40 mg DAILY ANNELISE Administration Primidone 100 mg 09/13/20 09:00 09/16/20 09:30 Primidone 50 Mg Tab PO 100 mg DAILY ANNELISE Administration Sodium Chloride 10 ml 09/13/20 08:17 09/15/20 08:37 Flush - Normal Saline 10 Ml Syringe IVF 10 ml PRN PRN Administration Saline Flush Zinc Sulfate 220 mg 09/13/20 09:00 09/16/20 08:07 Zinc Sulfate 220 Mg Cap PO 220 mg DAILY ANNELISE Administration - Exam General Appearance: awake alert Neck: supple, no JVD Heart: RRR, no gallops Respiratory: no wheezes, no ronchi Gastrointestinal: soft, non-tender, no guarding, no rigidity Extremities: no cyanosis Hosp A/P - Plan DVT proph w/SCDs Severe sepsis/acute hypoxic respiratory failure due to COVID-19 pneumonia Hyponatremia/Hypokalemia Elevated inflammatory markers Hypertension Hyperlipidemia Reactive thrombocytosis Gout Chronic alcohol abuse with alcohol withdrawalpatient drinks 12 to 16 pack beer on the daily basis Plan: Wean O2 as tolerated. Check inflammatory markers in a.m.. Continue remdesivir with Decadron. Continue Lovenox for DVT prophylaxis. Continue other medications as above. Continue alcohol withdrawal protocol. Continue other medications as above 09/15 Wean O2 as tolerated. Patient down to 3 L O2 nasal cannula. Symptomatically feeling better.. Continue remdesivir with dexamethasone and doxycycline. Continue bronchodilators. Continue PPIs. Replace potassium. Continue alcohol withdrawal protocol. Continue other medications as above. Close monitoring for alcohol withdrawal. 09/14 Patient currently on 4 L oxygen nasal cannula. Inflammatory markers improving. Will replace potassium. Blood cultures negative. At alcohol withdrawal protocol. Remdesivir started. Continue bronchodilators. Continue current dose of amlodipine, doxycycline, Decadron along with Toprol-XL. Monitor LFTs on daily basis. Continue other medications as above 09/13 Reduce Decadron to 6 mg daily. Patient requiring 2 L O2 nasal cannula. Monitor inflammatory markers. Remdesivir if patient qualifies. Resume selected home medications including amlodipine. Start low-dose Toprol-XL. Hold olmesartan for now. Add bronchodilators. Add doxycycline. Check inflammatory markers in a.m. Continue other medications as above. Continue COVID-19 isolation.
[2020-09-16] MEDS: BEER 1 CAN PO SCH ×2 (20:59→21:06)
[2020-09-17] MEDS: Albuterol 200 PUFF (6.7GM INHALER) INH SCH ×6 (02:46→22:55)
[2020-09-17] MEDS: Mometasone 200 MCG/Formoterol 5 MCG 120 PUFF INHALER INH SCH ×2 (06:00→21:06)
[2020-09-17 06:29] LABS: #Eosinphils 0.1 thou/uL (0.0-0.7); #Monocytes 1.3 thou/uL (0.11-0.59); #Neutrophils 7.6 thou/uL (1.40-6.50); %Basophils 0.3 % (0.0-1.0); %Eosinophils 1.2 % (0.0-10.0); %Lymphocytes 10.3 % (21.0-51.0); %Neutrophils 75.2 % (42.0-75.0); Hemoglobin 14.6 g/dL (14.0-18.0); Mean Corpuscular HGB CONC 32.7 g/dL (32.0-36.0); Mean Corpuscular Hemoglobin 31.3 pg (27.0-31.0); Mean Corpuscular Volume 95.7 fL (78.0-98.0); Mean Platelet Volume 6.1 fL (7.4-10.4); Platelet Count 639 thou/uL (130-400); RBC Distribution Width 11.7 % (11.5-14.5); Red Blood Cell (RBC) Count 4.66 mill/uL (4.70-6.10); White Blood Cell (WBC) Count 10.1 thou/uL (4.8-10.8)
[2020-09-17 06:47] LABS: ALT (SGPT) 28 U/L (8-55); AST (SGOT) 18 U/L (5-34); Albumin 3.1 g/dL (3.4-4.8); Alkaline Phosphatase 65 U/L (40-110); Anion Gap 10 mmol/L (10-20); BUN (Urea Nitrogen) 10 mg/dL (8.4-25.7); Bilirubin, Total 0.3 mg/dL (0.2-1.2); Calc. Creatinine Clearance 141 mL/min (70-130); Calcium 8.9 mg/dL (7.8-10.44); Carbon Dioxide 35 mmol/L (23-31); Chloride 98 mmol/L (98-107); Globulin 3.4 g/dL (2.4-3.5); Glucose 93 mg/dL (80-115); Protein, Total 6.5 g/dL (5.8-8.1); Sodium 139 mmol/L (136-145)
[2020-09-17] MEDS: Zinc Sulfate 220 MG CAP PO SCH (09:31)
[2020-09-17] MEDS: Doxycycline 100 MG CAP PO SCH ×2 (09:31→21:07)
[2020-09-17] MEDS: Ascorbic Acid 500 mg Chewable Tablet PO SCH (09:31)
[2020-09-17] MEDS: Cholecalciferol (Vitamin D3) 400 UNITS TAB PO SCH (09:32)
[2020-09-17] MEDS: Primidone 50 MG TAB PO SCH (09:32)
[2020-09-17] MEDS: Allopurinol 300 MG TAB PO SCH (09:32)
[2020-09-17] MEDS: Amlodipine 10 MG TAB PO SCH (09:32)
[2020-09-17] MEDS: Dexamethasone 4 mg/ml Vial SLOW IVP SCH (09:33)
[2020-09-17] MEDS: Enoxaparin Sodium 40 MG/0.4 ML SYRINGE SC SCH ×2 (09:33→21:07)
[2020-09-17] MEDS: REMDESIVIR IV SCH (14:48)
[2020-09-17] MEDS: SODIUM CHLORIDE 0.9% IV SCH (14:48)
[2020-09-17] MEDS: ALPRAZolam 0.25 MG TAB PO PRN ×2 (16:32→21:07)
[2020-09-17] MEDS: BEER 1 CAN PO SCH (21:07)
--- NOTE | 2020-09-17 22:09 | PDOC.HOSPP ---
- Subjective Encounter Date: 09/17/20 Encounter Time: 11:00 Subjective: Patient evaluated for respiratory failure. Shortness of breath improving. Mild dry cough. Denies any nausea, vomiting or fever - Objective Vital Signs & Weight: Vital Signs (12 hours) Temp Pulse Resp BP Pulse Ox 09/17/20 20:00 98.6 F 89 20 122/75 94 L Weight Weight 200 lb 14.4 oz I&O: 09/16/20 09/17/20 09/18/20 06:59 06:59 06:59 Intake Total 1800 2480 Balance 1800 2480 Result Diagrams: 09/17/20 05:54 09/17/20 05:54 Additional Labs: Abnormal Lab Results - Last 48 hrs 09/16/20 05:52: Carbon Dioxide 34 H, Albumin 3.1 L, Albumin/Globulin Ratio 0.9 L 09/16/20 05:52: RBC 4.69 L, Plt Count 559 H, MPV 6.0 L, Neutrophils % 77.0 H, Lymphocytes % 9.3 L, Monocytes % 13.1 H, Neutrophils # 8.1 H, Lymphocytes # 1.0 L, Monocytes # 1.4 H 09/17/20 05:54: Carbon Dioxide 35 H, Albumin 3.1 L, Albumin/Globulin Ratio 0.9 L 09/17/20 05:54: RBC 4.66 L, MCH 31.3 H, Plt Count 639 H, MPV 6.1 L, Neutrophils % 75.2 H, Lymphocytes % 10.3 L, Monocytes % 13.0 H, Neutrophils # 7.6 H, Lymphocytes # 1.0 L, Monocytes # 1.3 H 09/17/20 05:54: C-Reactive Protein 4.48 H 09/17/20 05:54: D-Dimer 2.23 H Microbiology - Entire Visit 09/12/20 18:49 Venous blood - Right Arm Blood Culture - Preliminary NO GROWTH AT 48 HOURS 09/12/20 18:58 Venous blood - Left Arm Blood Culture - Preliminary NO GROWTH AT 48 HOURS Hospitalist ROS - Review of Systems Cardiovascular: denies: chest pain, palpitations, orthopnea, paroxysmal noc. dyspnea, edema, light headedness, other Gastrointestinal: denies: nausea, vomiting, abdominal pain, diarrhea, constipation, melena, hematochezia, other - Medication Medications: Active Medications Generic Name Dose Route Start Last Admin Trade Name Freq PRN Reason Stop Dose Admin Acetaminophen 650 mg 09/13/20 08:17 09/14/20 11:01 Acetaminophen 325 Mg Tab PO 650 mg Q4H PRN Administration Headache/Fever/Mild Pain (1-3) Albuterol Sulfate 0 puff 09/13/20 10:30 09/17/20 21:06 Albuterol 200 Puff (6.7gm Inhaler) INH 2 inh [id number] ANNELISE Administration Allopurinol 300 mg 09/13/20 09:00 09/17/20 09:32 Allopurinol 300 Mg Tab PO 300 mg QAM ANNELISE Administration Alprazolam 0.25 mg 09/14/20 22:03 09/17/20 21:07 Alprazolam 0.25 Mg Tab PO 0.25 mg BIDPRN PRN Administration Anxiety Amlodipine Besylate 10 mg 09/13/20 09:00 09/17/20 09:32 Amlodipine 10 Mg Tab PO 10 mg QAM ANNELISE Administration Ascorbic Acid 1,000 mg 09/13/20 09:00 09/17/20 09:31 Ascorbic Acid 500 Mg Chewable Tablet PO 1,000 mg DAILY ANNELISE Administration Beer 1 each 09/15/20 21:00 09/17/20 21:07 Beer 1 Can PO Not Given HS [facility] Cholecalciferol 400 units 09/13/20 09:00 09/17/20 09:32 Cholecalciferol (Vitamin D3) 400 Units Tab PO 400 units DAILY ANNELISE Administration Dexamethasone 6 mg 09/14/20 09:00 09/17/20 09:33 Dexamethasone 4 Mg/Ml Vial SLOW IVP 6 mg DAILY ANNELISE Administration Doxycycline Hyclate 100 mg 09/13/20 09:00 09/17/20 21:07 Doxycycline 100 Mg Cap PO 100 mg BID ANNELISE Administration Enoxaparin Sodium 40 mg 09/17/20 09:00 09/17/20 09:33 Enoxaparin Sodium 40 Mg/0.4 Ml Syringe SC 40 mg 0900 ANNELISE Administration Enoxaparin Sodium 40 mg 09/17/20 21:00 09/17/20 21:07 Enoxaparin Sodium 40 Mg/0.4 Ml Syringe SC 40 mg 2100 ANNELISE Administration Hydralazine HCl 10 mg 09/13/20 08:24 09/14/20 00:45 Hydralazine 20 Mg/Ml Vial SLOW IVP 10 mg Q4H PRN Administration SBP GREATER THAN 160 Remdesivir 100 mg/ Sodium 80 mls @ 80 mls/hr 09/15/20 15:00 09/17/20 14:48 Chloride IV 09/18/20 15:59 80 mls 1500 ANNELISE Administration Lorazepam 1 mg 09/14/20 11:28 09/14/20 19:51 Lorazepam 1 Mg Tab PO 1 mg Q4H PRN Administration ASE >=9 Metoprolol Succinate 50 mg 09/13/20 09:00 09/17/20 09:33 Metoprolol Succinate Xl 50 Mg Tab PO 50 mg DAILY ANNELISE Administration Mometasone Furoate/Formoterol Fumar 2 puff 09/13/20 18:30 09/17/20 21:06 Mometasone 200 Mcg/Formoterol 5 Mcg 120 Puff Inhaler INH 2 puff BID-RT ANNELISE Administration Pantoprazole Sodium 40 mg 09/13/20 09:00 09/17/20 09:31 Pantoprazole 40 Mg Tab PO 40 mg DAILY ANNELISE Administration Primidone 100 mg 09/13/20 09:00 09/17/20 09:32 Primidone 50 Mg Tab PO 100 mg DAILY ANNELISE Administration Sodium Chloride 10 ml 09/13/20 08:17 09/17/20 09:33 Flush - Normal Saline 10 Ml Syringe IVF 10 ml PRN PRN Administration Saline Flush Zinc Sulfate 220 mg 09/13/20 09:00 09/17/20 09:31 Zinc Sulfate 220 Mg Cap PO 220 mg DAILY ANNELISE Administration - Exam General Appearance: awake alert Neck: supple Heart: RRR, no gallops Respiratory: rales, rhonchi Gastrointestinal: soft, no guarding, no rigidity Extremities: no cyanosis Musculoskeletal: generalized weakness Psychiatric: A&O x 3 Hosp A/P - Plan DVT proph w/lovenox, DVT proph w/SCDs Severe sepsis/acute hypoxic respiratory failure due to COVID-19 pneumonia Hyponatremia/Hypokalemia Elevated inflammatory markers Hypertension Hyperlipidemia Reactive thrombocytosis Gout Chronic alcohol abuse with alcohol withdrawalpatient drinks 12 to 16 pack beer on the daily basis Plan: Continue to wean O2. D-dimer increasing. Will increase Lovenox to 40 mg bid for DVT prophylaxis. Last dose of Remdesivir tomorrow. Continue Decadron. Home oxygen form completed. Patient can probably be discharged after Remdesivir dose if stable. 09/16 Wean O2 as tolerated. Check inflammatory markers in a.m.. Continue remdesivir with Decadron. Continue Lovenox for DVT prophylaxis. Continue other medications as above. Continue alcohol withdrawal protocol. Continue other medications as above 09/15 Wean O2 as tolerated. Patient down to 3 L O2 nasal cannula. Symptomatically fe eling better.. Continue remdesivir with dexamethasone and doxycycline. Continue bronchodilators. Continue PPIs. Replace potassium. Continue alcohol withdrawal protocol. Continue other medications as above. Close monitoring for alcohol withdrawal. 09/14 Patient currently on 4 L oxygen nasal cannula. Inflammatory markers improving. Will replace potassium. Blood cultures negative. At alcohol withdrawal protocol. Remdesivir started. Continue bronchodilators. Continue current dose of amlodipine, doxycycline, Decadron along with Toprol-XL. Monitor LFTs on daily basis. Continue other medications as above 09/13 Reduce Decadron to 6 mg daily. Patient requiring 2 L O2 nasal cannula. Monitor inflammatory markers. Remdesivir if patient qualifies. Resume selected home medications including amlodipine. Start low-dose Toprol-XL. Hold olmesartan for now. Add bronchodilators. Add doxycycline. Check inflammatory markers in a.m. Continue other medications as above. Continue COVID-19 isolation.
[2020-09-18] MEDS: Albuterol 200 PUFF (6.7GM INHALER) INH SCH ×5 (03:28→19:32)
[2020-09-18] MEDS: Mometasone 200 MCG/Formoterol 5 MCG 120 PUFF INHALER INH SCH ×2 (06:07→19:31)
[2020-09-18 06:31] LABS: #Eosinphils 0.1 thou/uL (0.0-0.7); #Lymphocytes 0.9 thou/uL (1.20-3.40); #Monocytes 1.1 thou/uL (0.11-0.59); #Neutrophils 6.8 thou/uL (1.40-6.50); %Basophils 0.2 % (0.0-1.0); %Eosinophils 0.9 % (0.0-10.0); %Lymphocytes 9.8 % (21.0-51.0); %Monocytes 12.2 % (0.0-10.0); %Neutrophils 76.9 % (42.0-75.0); Hemoglobin 14.7 g/dL (14.0-18.0); Mean Corpuscular HGB CONC 33.5 g/dL (32.0-36.0); Mean Corpuscular Hemoglobin 31.8 pg (27.0-31.0); Mean Corpuscular Volume 94.9 fL (78.0-98.0); Mean Platelet Volume 6.1 fL (7.4-10.4); Platelet Count 662 thou/uL (130-400); RBC Distribution Width 11.8 % (11.5-14.5); Red Blood Cell (RBC) Count 4.63 mill/uL (4.70-6.10); White Blood Cell (WBC) Count 8.8 thou/uL (4.8-10.8)
[2020-09-18 06:56] LABS: ALT (SGPT) 33 U/L (8-55); AST (SGOT) 19 U/L (5-34); Albumin 3.1 g/dL (3.4-4.8); Alkaline Phosphatase 65 U/L (40-110); Anion Gap 14 mmol/L (10-20); BUN (Urea Nitrogen) 13 mg/dL (8.4-25.7); Bilirubin, Total 0.2 mg/dL (0.2-1.2); Calc. Creatinine Clearance 143 mL/min (70-130); Calcium 8.7 mg/dL (7.8-10.44); Carbon Dioxide 32 mmol/L (23-31); Chloride 96 mmol/L (98-107); Globulin 3.2 g/dL (2.4-3.5); Glucose 96 mg/dL (80-115); Potassium 3.9 mmol/L (3.5-5.1); Protein, Total 6.3 g/dL (5.8-8.1); Sodium 138 mmol/L (136-145)
[2020-09-18] MEDS: Allopurinol 300 MG TAB PO SCH (08:39)
[2020-09-18] MEDS: Ascorbic Acid 500 mg Chewable Tablet PO SCH (08:39)
[2020-09-18] MEDS: Doxycycline 100 MG CAP PO SCH ×2 (08:40→19:32)
[2020-09-18] MEDS: Zinc Sulfate 220 MG CAP PO SCH (08:40)
[2020-09-18] MEDS: Cholecalciferol (Vitamin D3) 400 UNITS TAB PO SCH (08:40)
[2020-09-18] MEDS: Amlodipine 10 MG TAB PO SCH (08:40)
[2020-09-18] MEDS: Dexamethasone 4 mg/ml Vial SLOW IVP SCH (08:41)
[2020-09-18] MEDS: Enoxaparin Sodium 40 MG/0.4 ML SYRINGE SC SCH ×2 (08:43→19:33)
[2020-09-18] MEDS: Primidone 50 MG TAB PO SCH (08:44)
--- NOTE | 2020-09-18 09:11 | PDOC.HOSPP ---
- Subjective Encounter Date: 09/18/20 Encounter Time: 10:45 Subjective: Patient feeling much better. No cough today. Able to ambulate. Does not need the oxygen all the time. Eager to go home. - Objective Vital Signs & Weight: Vital Signs (12 hours) Temp Pulse Resp BP BP Pulse Ox 09/18/20 08:00 98.0 F 97 20 149/86 H 96 09/18/20 04:45 98.0 F 67 20 152/88 H 152/88 H Weight Weight 200 lb 14.4 oz I&O: 09/17/20 09/18/20 09/19/20 06:59 06:59 06:59 Intake Total 3500 Balance 3500 Result Diagrams: 09/18/20 05:40 09/18/20 05:40 Hospitalist ROS - Review of Systems Constitutional: denies: fever, chills Respiratory: reports: SOB with excertion. denies: cough, shortness of breath Cardiovascular: denies: chest pain, palpitations Gastrointestinal: denies: nausea, vomiting, abdominal pain - Medication Medications: Active Medications Generic Name Dose Route Start Last Admin Trade Name Freq PRN Reason Stop Dose Admin Acetaminophen 650 mg 09/13/20 08:17 09/14/20 11:01 Acetaminophen 325 Mg Tab PO 650 mg Q4H PRN Administration Headache/Fever/Mild Pain (1-3) Albuterol Sulfate 0 puff 09/13/20 10:30 09/18/20 06:08 Albuterol 200 Puff (6.7gm Inhaler) INH 2 inh [id number] ANNELISE Administration Allopurinol 300 mg 09/13/20 09:00 09/18/20 08:39 Allopurinol 300 Mg Tab PO 300 mg QAM ANNELISE Administration Alprazolam 0.25 mg 09/14/20 22:03 09/17/20 21:07 Alprazolam 0.25 Mg Tab PO 0.25 mg BIDPRN PRN Administration Anxiety Amlodipine Besylate 10 mg 09/13/20 09:00 09/18/20 08:40 Amlodipine 10 Mg Tab PO 10 mg QAM ANNELISE Administration Ascorbic Acid 1,000 mg 09/13/20 09:00 09/18/20 08:39 Ascorbic Acid 500 Mg Chewable Tablet PO 1,000 mg DAILY ANNELISE Administration Beer 1 each 09/15/20 21:00 09/17/20 21:07 Beer 1 Can PO Not Given HS ANNELISE Cholecalciferol 400 units 09/13/20 09:00 09/18/20 08:40 Cholecalciferol (Vitamin D3) 400 Units Tab PO 400 units DAILY ANNELISE Administration Dexamethasone 6 mg 09/14/20 09:00 09/18/20 08:41 Dexamethasone 4 Mg/Ml Vial SLOW IVP 6 mg DAILY ANNELISE Administration Doxycycline Hyclate 100 mg 09/13/20 09:00 09/18/20 08:40 Doxycycline 100 Mg Cap PO 100 mg BID ANNELISE Administration Enoxaparin Sodium 40 mg 09/17/20 09:00 09/18/20 08:43 Enoxaparin Sodium 40 Mg/0.4 Ml Syringe SC 40 mg 0900 ANNELISE Administration Enoxaparin Sodium 40 mg 09/17/20 21:00 09/17/20 21:07 Enoxaparin Sodium 40 Mg/0.4 Ml Syringe SC 40 mg 2100 ANNELISE Administration Hydralazine HCl 10 mg 09/13/20 08:24 09/14/20 00:45 Hydralazine 20 Mg/Ml Vial SLOW IVP 10 mg Q4H PRN Administration SBP GREATER THAN 160 Remdesivir 100 mg/ Sodium 80 mls @ 80 mls/hr 09/15/20 15:00 09/17/20 14:48 Chloride IV 09/18/20 15:59 80 mls 1500 ANNELISE Administration Lorazepam 1 mg 09/14/20 11:28 09/14/20 19:51 Lorazepam 1 Mg Tab PO 1 mg Q4H PRN Administration ASE >=9 Metoprolol Succinate 50 mg 09/13/20 09:00 09/18/20 08:40 Metoprolol Succinate Xl 50 Mg Tab PO 50 mg DAILY ANNELISE Administration Mometasone Furoate/Formoterol Fumar 2 puff 09/13/20 18:30 09/18/20 06:07 Mometasone 200 Mcg/Formoterol 5 Mcg 120 Puff Inhaler INH 2 puff BID-RT ANNELISE Administration Pantoprazole Sodium 40 mg 09/13/20 09:00 09/18/20 08:40 Pantoprazole 40 Mg Tab PO 40 mg DAILY ANNELISE Administration Primidone 100 mg 09/13/20 09:00 09/18/20 08:44 Primidone 50 Mg Tab PO 100 mg DAILY ANNELISE Administration Sodium Chloride 10 ml 09/13/20 08:17 09/18/20 08:42 Flush - Normal Saline 10 Ml Syringe IVF 10 ml PRN PRN Administration Saline Flush Zinc Sulfate 220 mg 09/13/20 09:00 09/18/20 08:40 Zinc Sulfate 220 Mg Cap PO 220 mg DAILY ANNELISE Administration - Exam General Appearance: NAD, awake alert ENT: moist mucosa Heart: RRR, no murmur, no gallops, no rubs Respiratory: CTAB, no wheezes, no rales, no ronchi Gastrointestinal: soft, non-tender, non-distended, normal bowel sounds Psychiatric: normal affect, normal behavior, A&O x 3 Hosp A/P - Plan DVT proph w/lovenox, DVT proph w/SCDs Severe sepsis/acute hypoxic respiratory failure due to COVID-19 pneumonia Hyponatremia/Hypokalemia Elevated inflammatory markers Hypertension Hyperlipidemia Reactive thrombocytosis Gout Chronic alcohol abuse with alcohol withdrawalpatient drinks 12 to 16 pack beer on the daily basis Plan: Patient stable on 2-3L [place] O2. Will d/c home after Remdesivir if can arrange home O2. 09/17 Continue to wean O2. D-dimer increasing. Will increase Lovenox to 40 mg bid for DVT prophylaxis. Last dose of Remdesivir tomorrow. Continue Decadron. Home oxygen form completed. Patient can probably be discharged after Remdesivir dose if stable. 09/16 Wean O2 as tolerated. Check inflammatory markers in a.m.. Continue remdesivir with Decadron. Continue Lovenox for DVT prophylaxis. Continue other medications as above. Continue alcohol withdrawal protocol. Continue other medications as above 09/15 Wean O2 as tolerated. Patient down to 3 L O2 nasal cannula. Symptomatically feeling better.. Continue remdesivir with dexamethasone and doxycycline. Continue bronchodilators. Continue PPIs. Replace potassium. Continue alcohol withdrawal protocol. Continue other medications as above. Close monitoring for alcohol withdrawal. 09/14 Patient currently on 4 L oxygen nasal cannula. Inflammatory markers improving. Will replace potassium. Blood cultures negative. At alcohol withdrawal protocol. Remdesivir started. Continue bronchodilators. Continue current dose of amlodipine, doxycycline, Decadron along with Toprol-XL. Monitor LFTs on daily basis. Continue other medications as above 09/13 Reduce Decadron to 6 mg daily. Patient requiring 2 L O2 nasal cannula. Monitor inflammatory markers. Remdesivir if patient qualifies. Resume selected home medications including amlodipine. Start low-dose Toprol-XL. Hold olmesartan for now. Add bronchodilators. Add doxycycline. Check inflammatory markers in a.m. Continue other medications as above. Continue COVID-19 isolation.
--- NOTE | 2020-09-18 14:33 | PDOC.DS.DS ---
Provider - Provider Date of Admission: 09/13/20 08:16 Date of Discharge: 09/18/20 Admitting Provider: Sarabjit Fontana MD Consultations: None Primary Care Physician: Subha Lee MD Course - Hospital Course Hospital Course: Patient stable on 2-3L [place] O2. Will d/c home after Remdesivir if can arrange home O2. 09/17 Continue to wean O2. D-dimer increasing. Will increase Lovenox to 40 mg bid for DVT prophylaxis. Last dose of Remdesivir tomorrow. Continue Decadron. Home oxygen form completed. Patient can probably be discharged after Remdesivir dose if stable. 09/16 Wean O2 as tolerated. Check inflammatory markers in a.m.. Continue remdesivir with Decadron. Continue Lovenox for DVT prophylaxis. Continue other medications as above. Continue alcohol withdrawal protocol. Continue other medications as above 09/15 Wean O2 as tolerated. Patient down to 3 L O2 nasal cannula. Symptomatically feeling better.. Continue remdesivir with dexamethasone and doxycycline. Continue bronchodilators. Continue PPIs. Replace potassium. Continue alcohol withdrawal protocol. Continue other medications as above. Close monitoring for alcohol withdrawal. 09/14 Patient currently on 4 L oxygen nasal cannula. Inflammatory markers improving. Will replace potassium. Blood cultures negative. At alcohol withdrawal protocol. Remdesivir started. Continue bronchodilators. Continue current dose of amlodipine, doxycycline, Decadron along with Toprol-XL. Monitor LFTs on daily basis. Continue other medications as above 09/13 Reduce Decadron to 6 mg daily. Patient requiring 2 L O2 nasal cannula. Monitor inflammatory markers. Remdesivir if patient qualifies. Resume selected home medications including amlodipine. Start low-dose Toprol-XL. Hold olmesartan for now. Add bronchodilators. Add doxycycline. Check inflammatory markers in a.m. Continue other medications as above. Continue COVID-19 isolation. Pertinent Studies: CT scan angiography of the chest No evidence of central pulmonary embolism. The findings are suspicious for viral pneumonia consistent with COVID-19. Resuscitation Status: 09/12/20 21:44 Resuscitation Status Routine Resuscitation Status: FULL: Full Resuscitation - Labs Lab Results: 09/18/20 05:40 09/18/20 05:40 Abnormal Lab Results - Last 48 hrs 09/17/20 05:54: Carbon Dioxide 35 H, Albumin 3.1 L, Albumin/Globulin Ratio 0.9 L 09/17/20 05:54: RBC 4.66 L, MCH 31.3 H, Plt Count 639 H, MPV 6.1 L, Neutrophils % 75.2 H, Lymphocytes % 10.3 L, Monocytes % 13.0 H, Neutrophils # 7.6 H, Lym phocytes # 1.0 L, Monocytes # 1.3 H 09/17/20 05:54: C-Reactive Protein 4.48 H 09/17/20 05:54: D-Dimer 2.23 H 09/18/20 05:40: Chloride 96 L, Carbon Dioxide 32 H, Albumin 3.1 L, Albumin/Globulin Ratio 1.0 L 09/18/20 05:40: RBC 4.63 L, MCH 31.8 H, Plt Count 662 H, MPV 6.1 L, Neutrophils % 76.9 H, Lymphocytes % 9.8 L, Monocytes % 12.2 H, Neutrophils # 6.8 H, Lymphocytes # 0.9 L, Monocytes # 1.1 H 09/18/20 05:40: C-Reactive Protein 3.75 H 09/18/20 05:40: D-Dimer 1.14 H Microbiology - Entire Visit 09/12/20 18:49 Venous blood - Right Arm Blood Culture - Final NO GROWTH IN 5 DAYS 09/12/20 18:58 Venous blood - Left Arm Blood Culture - Final NO GROWTH IN 5 DAYS - Physical Exam Vitals: Vital Signs (12 hours) Temp Pulse Resp BP BP Pulse Ox 09/18/20 09:00 149/86 H 09/18/20 08:00 98.0 F 97 20 149/86 H 96 09/18/20 04:45 98.0 F 67 20 152/88 H 152/88 H Weight Weight 200 lb 14.4 oz Physical Exam: The patient was seen and examined on the day of discharge. Problem - Discharge Plan Assessment: Severe sepsis/acute hypoxic respiratory failure due to COVID-19 pneumonia Hyponatremia/Hypokalemia-resolved Elevated inflammatory markers-improving Hypertension Hyperlipidemia Reactive thrombocytosis Gout Chronic alcohol abuse with alcohol withdrawal now resolvedpatient drinks 12 to 16 pack beer on the daily basis Plan of Treatment: We will discharge home on home oxygen. Patient is to follow-up with his primary care physician in 10 days. Patient has been counseled to stop alcohol. - Time spent with Patient (mins): 35 Plan - Discharge Medications Prescriptions: Dexamethasone 6 mg PO DAILY #4 tablet Home Medications: Medication Instructions Recorded Confirmed Type Allopurinol [Zyloprim] 300 mg PO QAM 08/10/18 09/13/20 History Olmesartan Medoxomil 40 mg PO QPM 08/10/18 09/13/20 History Amlodipine [Norvasc] 10 mg PO QAM 09/13/20 09/13/20 History Metoprolol Succinate [Toprol Xl] 100 mg PO DAILY 09/13/20 09/13/20 History Primidone 100 mg PO DAILY 09/13/20 09/13/20 History Dexamethasone 6 mg PO DAILY #4 tablet 09/18/20 Rx Allergies: No Known Allergies Allergy (Verified 09/13/20 00:24) - Discharge Instructions Activity:: Activity as Tolerated Nourishment:: Regular Diet Therapies:: Not Applicable Equipment/Supplies:: Oxygen (3 L nasal cannula) IV Therapy:: Not Applicable - Follow up Plan Referrals: Subha Lee MD [Primary Care Provider] - 10 Days Disposition: HOME Quality - Care Measures CORE MEASURES:: N/A
[2020-09-18] MEDS: REMDESIVIR IV SCH (14:49)
[2020-09-18] MEDS: SODIUM CHLORIDE 0.9% IV SCH (14:49)
[2020-09-18] MEDS: ALPRAZolam 0.25 MG TAB PO PRN ×2 (16:17→19:37)
[2020-09-18] MEDS: BEER 1 CAN PO SCH (19:33)
[2020-09-18 21:22] VITALS: BP 134/78; TEMP 98.5
--- NOTE | 2020-10-07 12:49 | EKG ---
Test Reason : Blood Pressure : / mmHG Vent. Rate : 117 BPM Atrial Rate : 117 BPM P-R Int : 136 ms QRS Dur : 082 ms QT Int : 316 ms P-R-T Axes : 037 007 047 degrees QTc Int : 440 ms Sinus tachycardia Possible Left atrial enlargement Borderline ECG Confirmed by LEODAN SILVEIRO M.D. ([id number]), department editor HAVEN WILLIS ([id number] on 10/07/2020 12:49:00 PM Referred By: Confirmed By:LEODAN SILVERIO M.D.
== END 2020-09-18 20:10 | disposition home or self-care (01) | DRG 871 ==
LOC: ERS 18:24 → 2SE 21:16 → OBSVTOIN 09-13 08:16 → T4-A 09-13 20:24
PROVIDERS: ADMIT Student in an Organized Health Care Education/Training Program; ATTEND Emergency Medicine
PROC: 8E0ZXY6 Isolation (ICD-10-PCS; 2020-09-13)
PROC: XW033E5 Introduction of Remdesivir Anti-infective into Peripheral Vein, Percutaneous Approach, New Technology Group 5 (ICD-10-PCS; principal; 2020-09-14)
DX: A41.89 Other specified sepsis (principal); U07.1 COVID-19; J12.82 Pneumonia due to coronavirus disease 2019; J96.01 Acute respiratory failure with hypoxia; E87.1 Hypo-osmolality and hyponatremia; F10.130 Alcohol abuse with withdrawal, uncomplicated; R65.20 Severe sepsis without septic shock; I10 Essential (primary) hypertension; E78.5 Hyperlipidemia, unspecified; F17.210 Nicotine dependence, cigarettes, uncomplicated; E78.00 Pure hypercholesterolemia, unspecified; D47.3 Essential (hemorrhagic) thrombocythemia; M10.9 Gout, unspecified; E87.6 Hypokalemia; Z90.49 Acquired absence of other specified parts of digestive tract; Z79.899 Other long term (current) drug therapy
CPT/HCPCS: 36415; 71045; 71275; 80053; 80307; 82728; 83605; 83735; 83880; 84100; 84484; 85025; 85379; 85610; 85730; 86140; 87040; 87635; 93005; 94760; 96365; 96367; 96375; G0378; J0360; J0456; J0696; J1100; J1650; J1885; J3490; Q9967; U0003; U0005